=== PATIENT | male | born 1960 | race Caucasian/White ===

== ENCOUNTER 2016-05-19 15:48 | Emergency (ER) | payer OTHER ==
--- NOTE | ~2016-05-19 | CR181 ---
[facility] A Service of [facility] & [facility] RADIOLOGY TEXT RESULTS PATIENT: SHEREE GRUBBS LOCATION: CFTX : 64 UNIT #: [id number] AGE: [address]: Marnie Kauffman SEX: M ORDER DR: [id number] [facility] [address] [place], [place] [address] [id number] E MR#: [id number] Acc #: [id number] NAME: SHEREE GRUBBS : 1960 SEX: M STUDY DATE/TIME: 05/19/2016 16:15 UNIT: [facility] ROOM: STUDY DESCRIPTION: CR Lumbar Spine 2 or 3 Views Attending Physician: Marnie Kauffman Pa-C Ordering Physician: Marnie Kauffman Pa-C Primary Care Physician: Fernanda Msihra Aprn MEDICAL IMAGING REPORT This report is preliminary unless electronic signature is present EXAM Lumbar spine 3 views INDICATION Back pain for 9 days. FINDINGS 3 views of the lumbar spine were obtained. There is no fracture or subluxation. The disc spaces are normal. IMPRESSION Normal 3 view lumbar spine series. Dictated by... Jesús Bianchi M.D. THIS IS AN ELECTRONICALLY VERIFIED REPORT Jesús Bianchi M.D. at 05/20/2016 9:22 AM LIZ/sharif TD: 05/20/2016 06:10 JOB #: [id number] MEDICAL IMAGING REPORT COPY
--- NOTE | ~2016-05-19 | CR243 ---
[facility] A Service of [facility] & [facility] RADIOLOGY TEXT RESULTS PATIENT: SHEREE GRUBBS LOCATION: CFTX : 64 UNIT #: [id number] AGE: [address]: Marnie Kauffman SEX: M ORDER DR: [id number] [facility] [address] [place], [place] [address] [id number] E MR#: [id number] Acc #: [id number] NAME: SHEREE GRUBBS : 1960 SEX: M STUDY DATE/TIME: 05/19/2016 16:15 UNIT: [facility] ROOM: STUDY DESCRIPTION: CR Thoracic Spine 3 Views Attending Physician: Marnie Kauffman Pa-C Ordering Physician: Marnie Kauffman Pa-C Primary Care Physician: Fernanda Mishra Aprn MEDICAL IMAGING REPORT This report is preliminary unless electronic signature is present EXAM Thoracic spine series INDICATION Back pain for 9 days. FINDINGS AP and lateral examination of the dorsal segment shows normal mineralization and a satisfactory anatomical dorsal kyphosis. All body heights, interspaces, and posterior elements are normal anatomically without any indication of malignancy, trauma, unusual paraspinal soft tissue density mass, or congenital defect. IMPRESSION Normal thoracic spine. Dictated by... Jesús Bianchi M.D. THIS IS AN ELECTRONICALLY VERIFIED REPORT Jesús Bianchi M.D. at 05/20/2016 9:22 AM LIZ/sharif TD: 05/20/2016 06:18 JOB #: [id number] MEDICAL IMAGING REPORT COPY
[~2016-05-19 15:48] MED LIST: CIPRO PO; LORTAB 5/500 TA1 TA1 PO
== END 2016-05-19 17:00 | disposition home or self-care (01) ==
LOC: CFTX 15:48
DX: M54.5 Low back pain (principal); M54.6 Pain in thoracic spine; F41.9 Anxiety disorder, unspecified; Z79.899 Other long term (current) drug therapy; Z88.0 Allergy status to penicillin
CPT/HCPCS: 72072; 72100; 99284